=== PATIENT | male | born 1975 | race Caucasian/White ===

== ENCOUNTER 2019-08-05 20:25 | Emergency (ER) | payer OTHER, SELFPAY ==
--- NOTE | ~2019-08-05 | XR_ITS ---
EXAMINATION: XR toe 4th LT min 2V EXAM DATE: 08/05/2019 21:20 INDICATION: Left fourth toe swelling, symptoms for 4-5 weeks. TECHNIQUE: Left fourth toe frontal, lateral and oblique projections obtained and reviewed. There i s no prior study for comparison. FINDINGS: There are sizable juxta-articular erosions at the head of the left fifth metatarsal bone, w hich appear like nonaggressive pressure erosions, a characteristic appearance for gout. Single small erosion of the left fourth middle phalanx probably same process. There is severe swelling of the four th toe. There are no acute fractures identified. No radiopaque foreign bodies identified. IMPRESSION: 1. Fifth metatarsal head juxta-articular erosions most consistent with gout. 2. Tiny fourth middle phalangeal erosion probably same process. 3. Severe fourth toe swelling. Reviewed, dictated and finalized at location A.
[2019-08-05 20:28] VITALS: BP 156/100; PULSE 88; RESP 19; TEMP 36.6; O2SAT 100
--- NOTE | 2019-08-05 20:54 | ECG_ITS ---
Measurements Intervals [place] Rate: 80 P: 7 PA: 178 QRS: -9 QRSD: 101 T: 8 QT: 370 QTc: 429 Interpretive Statements SINUS RHYTHM DELAYED PRECORDIAL R/S TRANSITION VOLTAGE CRITERIA FOR LVH BORDERLINE T WAVE ABNORMALITY- INFERIOR LEADS BASELINE ARTIFACT- I, II, III, AVL BORDERLINE ECG Electronically Signed On 08-06-2019 7:01:26 CDT by Jean Carlos Washington D.O.
--- NOTE | 2019-08-05 20:56 | ED.EXTPRO ---
HPI - Extremity Problem General Chief complaint: Extremity Problem,Nontraumatic Stated complaint: L FOOT INFECTION Time Seen by Provider: 08/05/19 20:42 Source: patient Mode of arrival: ambulatory Limitations: no limitations History of Present Illness HPI Narrative: This patient is a 44 yo male who presents for evaluation of fatigue and nausea. Patient states that for the past 4 days he has not felt well. He reports he has been tired and nauseated. He is concerned that he may have severe infection to his left 4th toe. He states he was seen by a sports manager regarding his left 4th toe that he has had gout several times. He reports he was scheduled to have toe amputated 2 months ago but is was cancelled due to the COVID 19. His toe is always swollen and painful. He states he was told he has diabetes but he does not taken any medication. He denies cough, fever, chills, sob, diarrhea, chest pain or abdominal pain. Related Data Allergies Allergy/AdvReac Type Severity Reaction Status Date / Time codeine AdvReac Unknown Nausea and Verified 05/06/18 01:34 Vomiting Review of Systems Review of Systems: All systems reviewed & are unremarkable except as noted in HPI and below Constitutional: Constitutional: Denies chills, Denies fever(s) and Reports weakness ENT: Denies dizziness and Denies sore throat Cardiovascular: Cardiovascular: Denies chest pain and Denies radiating jaw, neck or arm pain Respiratory: Respiratory: Denies cough and Denies dyspnea Gastrointestinal: Gastrointestinal: Denies abdominal pain, Denies diarrhea, Reports nausea and Denies vomiting Musculoskeletal: Musculoskeletal: Reports arthralgias (left 4th toe) PMFSH Past Medical History Medical History (Updated 08/06/19 @ 00:00 by Chase Tinoco) Gout Social History Social History (Updated 08/05/19 @ 20:57 by Blanca Ybarra MD) Smoking packs per day: 1 Smoking cigarettes per day: 20.0 Smoking status: Current every day smoker Alcohol intake: never Substance use type: marijuana Gender identity (if verbalized by the patient): Male Exam Narrative: Exam Narrative: GENERAL: Well-appearing, well-nourished, and in no acute distress. HEAD: Normocephalic, atraumatic EYES: PERRLA and EOMI, conjunctiva clear without discharge EARS: TM's clear bilaterally without erythema or dullness NOSE: Nares clear, no rhinorrhea or epistaxis THROAT:Mucous membranes moist, Oropharynx normal without erythema, exudate, peritonsillar swelling or fluctuance NECK: Supple, without lymphadenopathy or mass RESPIRATORY: No respiratory distress, Airway patent, Respirations non-labored, Clear to auscultation without rales, rhonchi or wheeze HEART: Regular rate and rhythm. No murmur heard. Normal peripheral pulses. ABDOMEN: Soft, nontender, nondistended, normal active bowel sounds. No masses. No rebound or guarding, No organomegaly. EXTREMITIES: No edema, normal strength with full range of motion. left 4th toe swelling, no erythema or drainage SKIN: Warm, dry, normal color without rash NEURO: Alert and oriented x3. CN 2-12 grossly intact. No focal deficits. PSYCH: Normal mood and affect. Course Reevaluation(s) Reevaluation #1: I have discussed with patient that he his labs are unremarkable. His toe does not appeared to be infected. Patient is stable for discharge home. Date: 08/05/19 Time: 23:34 Vital Signs Vital signs: Vital Signs Temperature 97.9 F 08/05/19 20:28 Pulse Rate 88 08/05/19 20:28 Respiratory Rate 19 08/05/19 20:28 Blood Pressure 156/100 H 08/05/19 20:28 Pulse Oximetry 100 08/05/19 20:28 Temperature 97.7 F 08/05/19 23:14 Pulse Rate 88 08/05/19 23:40 Respiratory Rate 17 08/05/19 23:40 Blood Pressure 140/88 08/05/19 23:40 Pulse Oximetry 97 08/05/19 23:40 MDM - Extremity (Nontraumatic) Lab Data Result diagrams: 08/05/19 21:22 08/05/19 21:22 Labs: Lab Results
[2019-08-05 21:01] VITALS: BP 185/126; PULSE 78; RESP 20; TEMP 36.7; O2SAT 99
[2019-08-05 21:27] LABS: Basophils Absolute Auto 0.1 K/mm3 (0.0-0.1); Eosinophils Absolute Auto 0.4 K/mm3 (0-0.3); Eosinophils Percent Auto 3.5 % (0-4.4); Hematocrit 45.8 % (42.0-52.0); Hemoglobin 16.6 g/dL (14.0-18.0); Immature Granulocyte Absolute 0.02 K/mm3 (0.00-0.031); Immature Granulocyte Percent A 0.2 % (0-0.5); Lymphocytes Percent Auto 27.4 % (18.3-44.2); Mean Corpuscular HGB Conc 36.2 g/dl (32-36); Mean Corpuscular Hemoglobin 31.2 pg (26-34); Mean Corpuscular Volume 86.1 fl (80-100); Mean Platelet Volume 10.4 fl (7.4-10.4); Monocytes Absolute Auto 0.5 K/mm3 (0.1-0.6); Monocytes Percent Auto 5.2 % (2.6-8.5); Neutrophils Absolute Auto 6.4 K/mm3 (1.3-6.7); Neutrophils Percent Auto 62.7 % (45.5-73.1); Platelet Count Result 236 k/mm3 (150-375); Red Blood Count 5.32 M/mm3 (4.6-6.20); Red Cell Distribution Width 13.5 % (11.5-14.5); White Blood Count 10.2 K/mm3 (4.5-10.0)
[2019-08-05 21:41] LABS: Alanine Aminotransferase 91 U/L (4-50); Albumin Level 4.3 g/dL (3.5-5.1); Alkaline Phosphatase 104 U/L (38-126); Aspartate Amino Transferase 68 U/L (17-59); Bilirubin,Total 0.6 mg/dL (0.2-1.3); Blood Urea Nitrogen 8 mg/dL (9-20); CRP 0.7 mg/dL (<1.0); Calcium 8.9 mg/dL (8.4-10.2); Carbon Dioxide 25 mmol/L (22-30); Chloride 103 mmol/L (98-107); Estimated CRCL calculation 140 ml/min; Estimated Glomerular Filt Rate > 60; Glucose 162 mg/dL (75-110); Potassium 3.3 mmol/L (3.4-5.0); Sodium 136 mmol/L (137-145)
[2019-08-05 23:07] LABS: Add Urine Microscopic? YES; Appearance Urine Clear (Clear); Bacteria Urine Trace /hpf; Bilirubin Urine Negative (Negative); Blood Urine Negative (Negative); Color Urine Yellow (Yellow); Glucose Urine UA Negative (Negative); Ketones Urine Negative (Negative); Leukocyte Esterase Ur Negative LEU/UL (Negative); Mucus Urine Rare /lpf; Nitrate Urine Negative (Negative); Protein Urine 1+ mg/dL (Negative); Specific Grav Ur 1.021 (1.001-1.035); Urobilinogen Urine Negative mg/dL (<2.0)
[2019-08-05 23:14] VITALS: BP 155/94; PULSE 82; RESP 20; TEMP 36.5; O2SAT 99
--- NOTE | 2019-08-05 23:26 | PC.NURSE ---
Assumed care of pt at this time. report from DELMER Browning
[2019-08-05 23:40] VITALS: BP 140/88; PULSE 88; RESP 17; O2SAT 97
== END 2019-08-05 23:40 | disposition home or self-care (01) ==
PROVIDERS: Emergency Provider General Practice
DX: R11.0 Nausea (principal); M10.9 Gout, unspecified; F17.210 Nicotine dependence, cigarettes, uncomplicated; R94.31 Abnormal electrocardiogram [ECG] [EKG]
CPT/HCPCS: 36415; 73660; 80053; 81001; 85025; 86140; 93005; 99283

== ENCOUNTER 2020-05-20 18:32 | Observation (INO) | payer OTHER, SELFPAY ==
[2020-05-20] VITALS (15 sets, daily range): BP systolic 124–150; BP diastolic 79–109; PULSE 82–106; RESP 15–19; TEMP 35.8; O2SAT 93–100
--- NOTE | ~2020-05-20 | US_ITS ---
EXAMINATION: US right upper quadrant DATE: 05/21/2020 09:36 INDICATION: Elevated liver enzymes TECHNIQUE: Multiple grayscale and Doppler ultrasound images of the abdomen were obtained. COMPARISON: None available FINDINGS: Bowel gas obscures visualization of the pancreas. The visualized portions of the pancreas a re unremarkable. The liver demonstrates increased echogenicity, heterogenous echotexture, and decreas ed through transmission. No surface nodularity. Normal hepatopetal flow in the main portal vein. The gallbladder is normal with no abnormal wall thickening, pericholecystic fluid or stones. The normal c ommon bile duct measures 4 mm. There was no sonographic Merino sign. IMPRESSION: 1. Diffuse hepatic steatosis. Reviewed, dictated and finalized at location A. [employer]
[2020-05-20 19:07] LABS: Glucose Point of Care > 500 (65-105)
[2020-05-20 19:19] LABS: Basophils Absolute Auto 0.2 K/mm3 (0.0-0.1); Basophils Percent Auto 1.3 % (0.2-1.2); Eosinophils Absolute Auto 0.3 K/mm3 (0-0.3); Eosinophils Percent Auto 2.2 % (0-4.4); Hemoglobin 17.4 g/dL (14.0-18.0); Immature Granulocyte Absolute 0.06 K/mm3 (0.00-0.031); Immature Granulocyte Percent A 0.5 % (0-0.5); Lymphocytes Absolute Auto 2.96 K/mm3 (0.9-3.2); Lymphocytes Percent Auto 23.1 % (18.3-44.2); Mean Corpuscular Hemoglobin 31.3 pg (26-34); Mean Corpuscular Volume 84.5 fl (80-100); Mean Platelet Volume 11.5 fl (7.4-10.4); Monocytes Absolute Auto 0.9 K/mm3 (0.1-0.6); Monocytes Percent Auto 6.6 % (2.6-8.5); Neutrophils Absolute Auto 8.5 K/mm3 (1.3-6.7); Neutrophils Percent Auto 66.3 % (45.5-73.1); Platelet Count Result 232 k/mm3 (150-375); Red Blood Count 5.56 M/mm3 (4.6-6.20); Red Cell Distribution Width 11.8 % (11.5-14.5); White Blood Count 12.8 K/mm3 (4.5-10.0)
[2020-05-20 19:38] LABS: Alanine Aminotransferase 229 U/L (4-50); Albumin Level 4.3 g/dL (3.5-5.1); Alkaline Phosphatase 202 U/L (38-126); Anion Gap 9 mmol/L (8-16); Aspartate Amino Transferase 166 U/L (17-59); Bilirubin,Total 0.9 mg/dL (0.2-1.3); Blood Urea Nitrogen 18 mg/dL (9-20); Calcium 9.4 mg/dL (8.4-10.2); Carbon Dioxide 28 mmol/L (22-30); Chloride 86 mmol/L (98-107); Estimated CRCL calculation 109 ml/min; Estimated Glomerular Filt Rate > 60; Magnesium 1.9 mg/dL (1.6-2.3); Phosphorus 3.7 mg/dL (2.5-4.5); Potassium 5.6 mmol/L (3.4-5.0); Sodium 123 mmol/L (137-145)
[2020-05-20 19:46] LABS: Glucose 785 mg/dL (75-110)
[2020-05-20 20:08] LABS: Beta-Hydroxybutyrate/Acetoacetate 0.12 mmol/L (0.02-0.27)
[2020-05-20 20:12] LABS: Glucose Point of Care > 500 (65-105)
[2020-05-20 20:20] LABS: Add Urine Microscopic? YES; Appearance Urine Clear (Clear); Bilirubin Urine Negative (Negative); Blood Urine Negative (Negative); Color Urine Straw (Yellow); Glucose Urine UA 3+ mg/dL (Negative); Ketones Urine Negative (Negative); Leukocyte Esterase Ur Negative LEU/UL (Negative); Nitrate Urine Negative (Negative); Protein Urine Negative (Negative); Urobilinogen Urine Negative mg/dL (<2.0); WBC Urine 0-3 /hpf
--- NOTE | 2020-05-20 20:38 | PC.NURSE ---
verbal order per dr gorman 2LNS bolus.
[2020-05-20] MEDS: SODIUM CHLORIDE 0.9% IV 2,000 ML 999 ML IV CONT (20:51)
--- NOTE | 2020-05-20 22:35 | ED.GENADULT ---
HPI - General Adult General Chief complaint: Recheck/Abnormal Lab/Rx Stated complaint: high blood sugar Time Seen by Provider: 05/20/20 19:51 Source: patient Mode of arrival: ambulatory Limitations: no limitations History of Present Illness HPI narrative: Patient is 45 years old white male presents to the ED because he is not able to eat over the last 5 days because of constant nausea. Patient denies any pain, but does not feel well lately. Patient had a diagnosis of new onset diabetes 6 months ago at [facility], did not have any medications, did not follow-up with the family physician. Patient denies any fever, chills, vomiting, abdominal pain, chest pain, shortness of breath, COVID-19 infection or exposure to anybody with COVID-19. Patient is a smoker, and uses marijuana. Does not drink. History of gout. Related Data Allergies Allergy/AdvReac Type Severity Reaction Status Date / Time codeine AdvReac Unknown Nausea and Verified 05/20/20 19:05 Vomiting Review of Systems Review of Systems: Narrative: CONSTITUTIONAL: Denies fever, chills, or sweats. EYES: Denies visual changes, redness, or discharge. ENT: Denies rhinorrhea, congestion, sore throat, or otalgia. CARDIOVASCULAR: Denies chest pain, palpitations, or edema. RESPIRATORY: Denies cough or dyspnea. GASTROINTESTINAL: Denies abdominal pain, nausea, vomiting, or diarrhea. GENITOURINARY: Denies dysuria or hematuria. SKIN: Denies rash or itching. MUSCULOSKELETAL: Denies back pain, joint pain, or myalgia. NEUROLOGIC: Denies headache, numbness, or weakness. PSYCHIATRIC: Denies anxiety or depression. PMFSH Past Medical History Medical History Gout Social History Social History Smoking packs per day: 1 Smoking cigarettes per day: 20.0 Smoking status: Current every day smoker Alcohol intake: never Substance use type: marijuana Gender identity (if verbalized by the patient): Male Exam Narrative: Exam Narrative: General appearance: Well-developed, well-nourished Skin: Normal color, callus at the dorsal side of the left fourth toe Head: Normocephalic, nontraumatic Eyes: Clear conjunctiva ENT: Oropharynx normal, ears normal, nose normal Neck: Supple, nontender Chest and respiratory: Airway patent, no respiratory distress, no accessory muscle use Heart: Regular rate/rhythm Abdomen: Soft, nontender, no organomegaly, quiet bowel sounds Vascular: Normal peripheral pulses, normal capillary refill. Musculoskeletal: Normal range of motion, nontender back Neurologic: Alert and oriented ?3, PASTRY CHEF is normal as tested, no gross motor deficit Course Course Emergency Course: Stable Vital Signs Vital signs: Vital Signs Temperature 35.8 C L 05/20/20 19:00 Pulse Rate 106 H 05/20/20 19:00 Respiratory Rate 18 05/20/20 19:00 Blood Pressure 150/109 H 05/20/20 19:00 Pulse Oximetry 100 05/20/20 19:00 Temperature 35.8 C L 05/20/20 19:00 Pulse Rate 92 05/20/20 21:15 Respiratory Rate 15 05/20/20 21:15 Blood Pressure 134/92 H 05/20/20 21:01 Pulse Oximetry 94 05/20/20 21:15 Medical Decision Making MDM Narrative Medical decision making narrative: Noncompliance with diabetic medicine. Labs, IV fluid, blood gas on room air, IV insulin ordered. Further plan to follow Differential Diagnosis Differential Diagnosis: Diabetic hyperglycemia, electrolyte imbalance, urinary tract infection Vital Signs Vital Signs: Vital Signs Temperature 35.8 C L 05/20/20 19:00 Pulse Rate 106 H 05/20/20 19:00 Respiratory Rate 18 05/20/20 19:00 Blood Pressure 150/109
[2020-05-20 22:38] LABS: Hemoglobin A1C 12.7 % (<5.7)
[2020-05-20 22:55] LABS: Alveolar/Arterial O2 Gradient 12.3 mmHg; Base Excess ABG 0.2 mEq/l (+/-2.0); Fractional Inspired Oxygen 21 %; Oxygen Saturation ABG 95.7 % (95.0-100.0); Oxyhemoglobin 93.2 % THb (90.0-100.0); PCO2 ABG 46.1 mmHg (35.0-45.0); PO2 ABG 82.2 mmHg (80.0-100.0); PO2 FiO2 Ratio Arterial Blood 3.91 %; pH ABG 7.369 (7.350-7.450)
[2020-05-20 22:56] LABS: Device ROOM AIR; Site Drawn LEFT BRACHIAL
[2020-05-20 23:15] LABS: Glucose Point of Care > 500 (65-105)
[2020-05-20] MEDS: INSULIN HUMAN REGULAR (*BKC) 100 UNITS in SODIUM CHLORIDE 0.9% IV 99 ML 8.9 UNITS IV CONT (23:16)
[2020-05-21] VITALS (37 sets, daily range): BP systolic 93–124; BP diastolic 62–87; PULSE 70–99; RESP 11–20; TEMP 36.6–37; O2SAT 94–100
[2020-05-21 00:19] LABS: Glucose Point of Care 433 (65-105)
[2020-05-21] MEDS: SODIUM CHLORIDE 0.9% IV 1,000 ML 999 ML IV CONT (00:49)
[2020-05-21 01:19] LABS: Glucose Point of Care 316 (65-105)
[2020-05-21 02:32] LABS: Glucose Point of Care 241 (65-105)
[2020-05-21 03:21] LABS: Glucose Point of Care 236 (65-105)
[2020-05-21 04:23] LABS: Glucose Point of Care 210 (65-105)
[2020-05-21] MEDS: KCL 20 MEQ/D5/0.45% SOD CHL 1,000 ML 150 ML IV CONT (05:13)
[2020-05-21 06:01] LABS: Glucose Point of Care 109 (65-105)
[2020-05-21 06:41] LABS: Glucose Point of Care 95 (65-105)
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
[2020-05-21 07:07] LABS: Alanine Aminotransferase 211 U/L (4-50); Albumin Level 3.6 g/dL (3.5-5.1); Alkaline Phosphatase 140 U/L (38-126); Anion Gap 5 mmol/L (8-16); Aspartate Amino Transferase 205 U/L (17-59); Bilirubin,Total 0.6 mg/dL (0.2-1.3); Blood Urea Nitrogen 12 mg/dL (9-20); Calcium 8.6 mg/dL (8.4-10.2); Carbon Dioxide 33 mmol/L (22-30); Chloride 102 mmol/L (98-107); Estimated CRCL calculation 137 ml/min; Estimated Glomerular Filt Rate > 60; Glucose 73 mg/dL (75-110); Sodium 140 mmol/L (137-145)
[2020-05-21] MEDS: SODIUM CHLORIDE 0.9% IV 1,000 ML 150 ML IV CONT (08:58)
[2020-05-21] MEDS: POTASSIUM CHLORIDE 20 MEQ TABLET 40 MEQ PO (08:59)
[2020-05-21] MEDS: metFORMIN HCL 500 MG TABLET PO (08:59)
[2020-05-21 09:04] LABS: Hepatitis B Surface Antigen Negative (Negative)
[2020-05-21 09:10] LABS: HAV RESULT Negative (Negative); Hepatitis B Core IgM Result Negative (Negative)
[2020-05-21 09:17] LABS: Glucose Point of Care 188 (65-105)
[2020-05-21 09:22] LABS: Hepatitis C Virus Antibody Reactive (Negative)
[2020-05-21] MEDS: ENOXAPARIN 40 MG/0.4 ML SYRINGE SUB-Q (09:39)
[2020-05-21 10:19] LABS: Anion Gap 2 mmol/L (8-16); Blood Urea Nitrogen 13 mg/dL (9-20); Calcium 7.8 mg/dL (8.4-10.2); Carbon Dioxide 30 mmol/L (22-30); Chloride 102 mmol/L (98-107); Estimated CRCL calculation 158 ml/min; Estimated Glomerular Filt Rate > 60; Glucose 209 mg/dL (75-110); Potassium 3.8 mmol/L (3.4-5.0); Sodium 134 mmol/L (137-145)
--- NOTE | 2020-05-21 10:55 | PM.DS ---
DS: Admitting Diagnosis Admitting Diagnosis Admitting Diagnosis: (1) Diabetes mellitus with hyperglycemia: (2) Tobacco abuse counseling: (3) Transaminitis: DS: Discharge Diagnosis Discharge Diagnosis (1) Hyperosmolar hyperglycemic state (HHS): Code(s): E11.00 - Type 2 diabetes mellitus with hyperosmolarity without nonketotic hyperglycemic-hyperosmolar coma (NKHHC); E11.65 - Type 2 diabetes mellitus with hyperglycemia Status: Acute Assessment and Plan: Resolved. (2) Transaminitis: Code(s): R74.01 - Elevation of levels of liver transaminase levels Status: Acute Assessment and Plan: Likely secondary to fatty liver disease and uncontrolled diabetes. (3) Tobacco abuse counseling: Code(s): Z71.6 - Tobacco abuse counseling Status: Acute Assessment and Plan: Encouraged cessation, patient was agreeable to it. DS: Summary Hospital Course Reason for hospitalization: Uncontrolled sugars. Hospital Course: Sheldon Dos Santos is a 45 year old male with a past medical history obesity, tobacco abuse and diabetes presented to ED due to uncontrolled blood sugars.He was diagnosed with diabetes in early 2019. He went to [facility] the ER for evaluation of his gout at that time and was told that he likely had diabetes, his sugars at that time were in the 200s. He did not follow-up regarding his diabetes and was not prescribed any medications. Came to ED in July 2019 for evaluation of fatigue and nausea as well as concerned about his toe. His sugars at that time were around 162. He was supposed to follow-up with a senior medical director regarding his toe and stated that he was supposed to have the toe ?cut off? in May by podiatry but it did not happened because of pandemic. His toe is always painful however no signs of infection at that time. He had not any fevers or chills, over the last week he has had elevated blood sugars. His sugars in the mid 300s, has had polydipsia, nausea, decreased appetite and polyuria. He denied any dysuria, has had blurry vision over the last few days, intermittent frontal headaches/posterior ocular headaches for the last several months there associated with his eyes. He reports that he was having some palpitations and feeling as if his heart was racing for the last 6 days or so. He denied any chest pain, had palpitations and shortness of breath when he would smoke. He states that he had plans to quit smoking l. He had smoked a pack of cigarettes per day since he was a teenager. He also smokes a ?quarter bag? of marijuana a day. He uses his unemployment benefits to buy drugs. He has been having numbness burning and tingling sensation in his feet for the last several months. Patient was admitted overnight for better control of his sugar. In the morning his sugar was back to low 100's and decision was made to discharge him home. He was prescribed Insulin that his plan covers for. He was going to establish his care with a PCP. Status at Discharge Cognitive/behavioral status at discharge: AOX3 Functional status at discharge: independent ambulation Overall status at discharge: patient is back to baseline Time Spent with Patient Time attestation: Total time spent providing and/or coordinating discharge services: Time spent: Greater than 30 minutes Exam Narrative: Exam Narrative: Sitting in bed Const: General: comfortable, no acute distress, well developed, alert, awake and Physically active Nutritional Appearance: well nourished Orientation/consciousness: patient oriented x3 HENMT: Head: normal to inspection, normocephalic and atraumatic Ears: hearing grossly normal bilaterally General nose exam: Normal external nose present Face and sinus: normal facial exam Eyes: General: appearance normal, both eyes and all related structures Pupils: Equal, round and reactive pupils present EOM: EOMs intact bilaterally Neck: Neck: no lymphadenopathy and no JVD
[2020-05-21 11:33] LABS: Glucose Point of Care 335 (65-105)
[2020-05-21] MEDS: INSULIN ASPART (*BKC) 100 UNITS/ML SUB-Q (11:40)
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
--- NOTE | 2020-05-25 13:00 | PCCDE ---
Consult received 05/21 for diabetes education however pt was discharged on Sunday 05/21 when underground bolting machine operator n/a. Attempted to call pt today but left voice message for pt to return call. Will be available per request.
== END 2020-05-21 12:55 | disposition home or self-care (01) ==
LOC: ANHED 05-21 00:19 → ANHICU 05-21 05:45
PROVIDERS: Internal Medicine Critical Care Medicine; Admitting Provider Internal Medicine; Emergency Provider Emergency Medicine; Visit Provider Internal Medicine
DX: E11.65 Type 2 diabetes mellitus with hyperglycemia (principal); E11.00 Type 2 diabetes mellitus with hyperosmolarity without nonketotic hyperglycemic-hyperosmolar coma (NKHHC); E11.42 Type 2 diabetes mellitus with diabetic polyneuropathy; E66.9 Obesity, unspecified; F17.210 Nicotine dependence, cigarettes, uncomplicated; F12.90 Cannabis use, unspecified, uncomplicated; R11.0 Nausea; R74.8 Abnormal levels of other serum enzymes; Z68.34 Body mass index [BMI] 34.0-34.9, adult; Z91.14 Patient's other noncompliance with medication regimen
CPT/HCPCS: 36415; 36600; 76705; 80048; 80053; 80074; 81001; 82010; 82805; 82948; 83036; 83735; 84100; 85025; 87522; 96361; 96365; 96366; 96367; 96372; 99285; A9270; G0378; G0379; J1650; J1815; J3480; J7030